=== PATIENT | female | born 1990 | race Caucasian/White ===

== ENCOUNTER 2022-12-08 23:15 | Emergency (ER) | payer BC ==
[2022-12-08] MEDS ORDERED: Sodium Chloride 0.9% 1,000 ML IV ONE (23:31)
[2022-12-08] MEDS ORDERED: Metoclopramide 10 MG/2 ML SDV IVPUSH ONE (23:32)
[2022-12-08] MEDS ORDERED: Ketorolac 30 MG/ML SDV IVPUSH ONE (23:33)
== END 2022-12-09 00:48 | disposition home or self-care (01) ==
LOC: MW.ED 23:15
DX: R51.9 Headache, unspecified (principal)
CPT/HCPCS: 96361; 96374; 96375; 99283; J1885; J2765; J7030; 99284